=== PATIENT | female | born 1970 | race Caucasian/White ===

== ENCOUNTER 2022-04-16 19:26 | Emergency (ER) | payer SELFPAY ==
[2022-04-16] MEDS ORDERED: Acetaminophen 500 MG TAB ONE (20:07)
[2022-04-16] MEDS ORDERED: Ketorolac Tromethamine 30 MG/ML VIAL ONE (20:07)
== END 2022-04-16 22:07 | disposition home or self-care (01) ==
LOC: CSHERS 19:26
DX: M76.61 Achilles tendinitis, right leg (principal); K21.9 Gastro-esophageal reflux disease without esophagitis; I10 Essential (primary) hypertension; F17.210 Nicotine dependence, cigarettes, uncomplicated
CPT/HCPCS: 96372; J1885

== ENCOUNTER 2023-06-13 12:57 | Emergency (ER) | payer SELFPAY ==
[2023-06-13] MEDS ORDERED: Dexamethasone 4 mg/ml Vial ONE (13:27)
[2023-06-13 13:49] LABS: SARS-CoV-2 NAA Rapid Test Not Detected (NotDetected)
[2023-06-13] MEDS ORDERED: Triamcinolone 40 MG/ML VIAL IM SCH (14:00)
== END 2023-06-13 14:28 | disposition home or self-care (01) ==
LOC: CSHERS 12:57
DX: J10.1 Influenza due to other identified influenza virus with other respiratory manifestations (principal); I10 Essential (primary) hypertension; F17.210 Nicotine dependence, cigarettes, uncomplicated; Z20.822 Contact with and (suspected) exposure to COVID-19
CPT/HCPCS: 71046; 96372; J1100; J3301

== ENCOUNTER 2023-09-13 11:27 | Emergency (ER) | payer SELFPAY ==
[2023-09-13 12:03] LABS: #Basophils 0.1 10x3/uL (0.0-0.2); #Eosinphils 0.4 10x3/uL (0.0-0.5); #Monocytes 0.7 10x3/uL (0.0-1.1); #Neutrophils 11.8 10x3/uL (1.5-8.4); %Basophils 0.5 % (0.0-2.0); %Eosinophils 2.7 % (0.0-6.0); %Lymphocytes 11.8 % (18.0-47.0); %Monocytes 4.5 % (0.0-10.0); Mean Corpuscular HGB CONC 32.6 g/dL (32.0-36.0); Mean Corpuscular Hemoglobin 27.4 pg (27.0-33.0); Mean Corpuscular Volume 84.1 fl (81.6-98.3); Mean Platelet Volume 11.7 fl (7.4-10.4); Platelet Count 331 10x3/uL (150-450); RBC Distribution Width 13.8 % (11.5-14.5); Red Blood Cell (RBC) Count 5.11 10x6/uL (3.90-5.03); White Blood Cell (WBC) Count 14.7 10x3/uL (3.5-10.5)
[2023-09-13] MEDS ORDERED: Pantoprazole 40 MG VIAL ONE (12:18)
[2023-09-13] MEDS ORDERED: Sucralfate 1 GM/10 ML UDCUP ONE (12:19)
[2023-09-13 12:23] LABS: ALT (SGPT) 23 U/L (8-55); AST (SGOT) 24 U/L (5-34); Albumin 4.4 g/dL (3.5-5.0); Alkaline Phosphatase 92 U/L (40-110); Anion Gap 14 mmol/L (10-20); BUN (Urea Nitrogen) 17 mg/dL (9.8-20.1); Bilirubin, Total 0.5 mg/dL (0.2-1.2); Calc. Creatinine Clearance 0 mL/min (70-130); Calcium 9.2 mg/dL (7.8-10.44); Carbon Dioxide 25 mmol/L (22-29); Chloride 103 mmol/L (98-107); Estimated GFR 56; Globulin 2.8 g/dL (2.4-3.5); Glucose 120 mg/dL (70-105); Potassium 4.6 mmol/L (3.5-5.1); Protein, Total 7.2 g/dL (6.0-8.3); Sodium 137 mmol/L (136-145)
[2023-09-13 12:25] LABS: Troponin I 0.016 ng/mL (< 0.028)
[2023-09-13] MEDS ORDERED: Lidocaine 2% Viscous 10 mL, Alum & Magn 30 mL SSW SCH (12:30)
== END 2023-09-13 13:50 | disposition home or self-care (01) ==
LOC: CSHERS 11:27
DX: K21.00 Gastro-esophageal reflux disease with esophagitis, without bleeding (principal); I10 Essential (primary) hypertension; F17.210 Nicotine dependence, cigarettes, uncomplicated
CPT/HCPCS: 71045; 80053; 83880; 84484; 85025; 93005; 96374; C9113